=== PATIENT | male | born 1965 | race Asian ===

== ENCOUNTER 2016-06-07 09:44 | Day surgery (SDC) | payer OTHER ==
[~2016-06-07] VITALS: Ht 167.6 cm; Wt 75.9 kg
[2016-06-07 10:20] VITALS: Ht 167.6 cm; Wt 75.9 kg
[2016-06-07 10:44] VITALS: BP 138/84; PULSE 71; RESP 20
[2016-06-07] MEDS ORDERED: MIDAZOLAM 1 MG/ML 2 ML INJ ONE ×4 (11:20→18:27)
[2016-06-07] MEDS ORDERED: FENTAnyl 50 MCG/ML VIAL ONE ×2 (11:20→18:27)
[2016-06-07 11:32] VITALS: BP 106/71; PULSE 64; RESP 18
--- NOTE | 2016-06-07 12:14 | GILP ---
DATE OF PROCEDURE: INDICATION: A 50-year-old male undergoing this procedure for colon cancer screening. The risks of the procedure, related and unrelated complications, sedative risks, alternatives discussed and infor med consent was obtained. DESCRIPTION OF PROCEDURE: The patient was brought to the GI lab, sedated with Versed and fentanyl. After optimal sedation, scope was passed with much ease into rectum, advanced through sigmoid, desc ending, transverse colon all the way into cecum and also into terminal ileum. Terminal ileum up to 0.5 foot was normal. Rest of the colon appeared normal. Appendix was normal. While coming out, miguel rasmussen thoroughly inspected. He had small hemorrhoid. IMPRESSION: 1. Normal findings all the way into cecum. 2. Normal terminal ileum. 3. Clarity and cleanliness was good. 4. Small hemorrhoid. PLAN: Stay on high fiber diet. Dictated By: TINO ARREGUIN/DANIEL Conf#: [id number] DID#: [id number]
== END 2016-06-07 12:41 | disposition home or self-care (01) ==
LOC: GIL 09:44
PROVIDERS: ATTEND Internal Medicine Gastroenterology
DX: Z12.11 Encounter for screening for malignant neoplasm of colon (principal); K64.9 Unspecified hemorrhoids
CPT/HCPCS: 45378; J2250; J3010; Z7610